=== PATIENT | male | born 1960 | race Caucasian/White ===

== ENCOUNTER 2016-07-04 16:14 | Observation (INO) | payer MEDICARE ==
[2016-07-04 16:19] VITALS: BP 175/85; PULSE 42; RESP 20; TEMP 97.6; O2SAT 100
[2016-07-04] MEDS ORDERED: TRAZ100T4 PO (16:59)
[2016-07-04] MEDS ORDERED: MULT1TAB84 PO (16:59)
[2016-07-04] MEDS ORDERED: ALPR0.5T3 PO (16:59)
[2016-07-04] MEDS ORDERED: FOLI1CAP7 PO (16:59)
[2016-07-04] MEDS ORDERED: FISH1000 (16:59)
[2016-07-04] MEDS ORDERED: BISO5TAB5 PO (16:59)
[2016-07-04] MEDS ORDERED: VITA100T15 PO (16:59)
[2016-07-04] MEDS ORDERED: ASCO500T PO (16:59)
[2016-07-04] MEDS ORDERED: BUPR150T3 PO (16:59)
[2016-07-04] MEDS ORDERED: HYDR25TA5 PO (16:59)
[2016-07-04] MEDS ORDERED: THIA100T PO (16:59)
[2016-07-04 17:00] VITALS: RESP 18; O2SAT 99
--- NOTE | 2016-07-04 17:01 | PD ---
HPI Chief Complaint: Cardiac Complaint Time Seen by Provider: 16:45 Travel History International Travel<30 days: No Contact w/Intl Traveler<30days: No Traveled to known affect area: No History of Present Illness HPI 56-year-old male complains of chest pain. Patient states that he started having dull aching pain left chest since yesterday. Patient states that the pain has been intermittent dull aching pain with radiation to left axilla. Patient denies any nausea or diaphoresis. Patient states that he started having irregular heartbeat today. Patient states that the chest pain is not so she with exertion. Patient states that he has intermittent dizziness and lightheadedness today. Patient has history of chest pain in the past. Patient had stress test, echocardiogram, patient took 2 aspirin last night. On a scale of 1-10 the pain is a 3 now. PFSH Past Medical History Atrial Fibrillation: Yes Depression: Yes Cardiac Catheterization: Yes Cardiovascular Problems: Yes High Cholesterol: Yes Chest Pain: Yes Hypertension: Yes Past Surgical History Other Surgery: Yes (bone,skin & muscle grafts - left leg) Social History Alcohol Use: No (quit 3 yrs ago) Tobacco Use: No (quit 3 yrs ago) Substance Use: Yes (marijuana - socially) Allergies-Medications Reported Meds & Prescriptions Reported Meds & Active Scripts Active Reported Vitamin B12 (Cyanocobalamin) 100 Mcg Tab 100 Mcg PO DAILY Trazodone (Trazodone HCl) 100 Mg Tab 100 Mg PO HS Thiamine (Thiamine HCl) 100 Mg Tab 100 Mg PO DAILY Multivitamin Adults (Multiple Vitamins W/ Minerals) 1 Tab 1 Tab PO DAILY Hydrochlorothiazide 25 Mg Tab 25 Mg PO DAILY Folic Acid 800 Mcg Cap 800 Mcg PO DAILY Fish Oil ([place]-3 Fatty Acids) 1,000 Mg Cap Bupropion HCl ER 24 HR (Bupropion HCl) 150 Mg Tab 150 Mg PO DAILY Bisoprolol (Bisoprolol Fumarate) 5 Mg Tab 5 Mg PO DAILY Ascorbic Acid 500 Mg Tab 500 Mg PO Alprazolam 0.5 Mg Tab 0.5 Mg PO Q8H PRN Review of Systems General / Constitutional: No: Fever Eyes: No: Visual changes HENT: No: Headaches Cardiovascular: Positive: Chest Pain or Discomfort, Irregular Rhythm Respiratory: No: Shortness of Breath Gastrointestinal: No: Abdominal Pain Genitourinary: No: Dysuria Musculoskeletal: No: Pain Skin: No Rash Neurologic: No: Weakness Psychiatric: No: Depression Endocrine: No: Polydipsia Hematologic/Lymphatic: No: Easy Bruising Physical Exam Narrative GENERAL: Well-nourished, well-developed patient. SKIN: Focused skin assessment warm/dry. HEAD: Normocephalic. EYES: No scleral icterus. No injection or drainage. NECK: Supple, trachea midline. No JVD or lymphadenopathy. CARDIOVASCULAR: Regular rate and rhythm without murmurs, gallops, or rubs. RESPIRATORY: Breath sounds equal bilaterally. No accessory muscle use. GASTROINTESTINAL: Abdomen soft, non-tender, nondistended. MUSCULOSKELETAL: No cyanosis, or edema. BACK: Nontender without obvious deformity. No CVA tenderness. Neurologic exam normal. Data Data Last Documented VS Vital Signs Date Time Temp Pulse Resp B/P Pulse Ox O2 Delivery O2 Flow Rate FiO2 07/04/16 17:00 18 99 Room Air 07/04/16 16:19 97.6 42 175/85 Orders Electrocardiogram (07/04/16 ) Complete Blood Count With Diff (07/04/16 16:39) Basic Metabolic Panel (Bmp) (07/04/16 16:39) Ckmb (Isoenzyme) Profile (07/04/16 16:39) Troponin I (07/04/16 16:39) Chest, Single Ap (07/04/16 16:39) Iv Access Insert/Monitor (07/04/16 16:39) Ecg Monitoring (07/04/16 16:39) Oxygen Administration (07/04/16 16:39) Oximetry (07/04/16 16:39) Comprehensive Metabolic Panel (07/04/16 16:45) Prothrombin Time / Inr (Pt) (07/04/16 16:45) Act Partial Throm Time (Ptt) (07/04/16 16:45) CKMB (07/04/16 16:32) CKMB% (07/04/16 16:32) Labs Laboratory Tests Test 07/04/16 16:32 White Blood Count 5.5 TH/MM3 Red Blood Count 4.16 MIL/MM3 Hemoglobin 12.7 GM/DL Hematocrit 36.5 % Mean Corpuscular Volume 87.7 FL Mean Corpuscular Hemoglobin 30.6 PG Mean Corpuscular Hemoglobin 34.9 % Concent Red Cell Distribution Width 13.7 % Platelet Count 233 TH/MM3 Mean Platelet Volume 7.6 FL Neutrophils (%) (Auto) 51.0 % Lymphocytes (%) (Auto) 34.8 % Monocytes (%) (Auto) 11.2 % Eosinophils (%) (Auto) 2.7 % Basophils (%) (Auto) 0.3 % Neutrophils # (Auto) 2.8 TH/MM3 Lymphocytes # (Auto) 1.9 TH/MM3 Monocytes # (Auto) 0.6 TH/MM3 Eosinophils # (Auto) 0.2 TH/MM3 Basophils # (Auto) 0.0 TH/MM3 CBC Comment DIFF FINAL Differential Comment Sodium Level 132 MEQ/L Potassium Level 4.2 MEQ/L Chloride Level 96 MEQ/L Carbon Dioxide Level 31.7 MEQ/L Anion Gap 4 MEQ/L Blood Urea Nitrogen 15 MG/DL Creatinine 0.86 MG/DL Estimat Glomerular Filtration 91 ML/MIN Rate Random Glucose 88 MG/DL Calcium Level 8.7 MG/DL Total Creatine Kinase 108 U/L Creatine Kinase MB 1.6 NG/ML Troponin I 0.02 NG/ML MDM Medical Decision Making Medical Screen Exam Complete: Yes Emergency Medical Condition: Yes Interpretation(s) 1700 p.m. EKG shows sinus rhythm nonspecific ST-T wave change. Frequent PVCs. 1813 p.m. CBC within normal limit. BMP within normal limit. Cardiac enzymes are normal. Last Impressions Chest X-Ray 07/04/16 1639 Signed Impressions: Service Date/Time: Monday, July 04, 2016 17:32 - CONCLUSION: Normal examination for a patient of this age. Cristobal Golden MD Differential Diagnosis Differential diagnosis including musculoskeletal, angina, UT, PE, pneumothorax. Narrative Course 56-year-old male with chest pain. Diagnosis Primary Impression: Chest pain Qualified Code: R07.9 - Chest pain, unspecified type Admitting Information Admitting Physician Requests: Observation Josh Maria MD Jul 04, 2016 17:01
[2016-07-04 17:19] LABS: AUTOMATED NEUTROPHIL # 2.8 TH/MM3 (1.8-7.7); BASOPHIL % 0.3 % (0.0-2.0); EOSINOPHIL # 0.2 TH/MM3 (0-0.4); EOSINOPHIL % 2.7 % (0.0-4.0); HEMATOCRIT 36.5 % (39.0-51.0); HEMO FLAGS DIFF FINAL; LYMPH % 34.8 % (9.0-44.0); LYMPHOCYTE # 1.9 TH/MM3 (1.0-4.8); MEAN CELL VOLUME 87.7 FL (80.0-100.0); MEAN CORPUSCULAR HEMOGLOBIN 30.6 PG (27.0-34.0); MEAN CORPUSCULAR HGB CONC 34.9 % (32.0-36.0); MONO % 11.2 % (0.0-8.0); PLATELET COUNT 233 TH/MM3 (150-450); RED BLOOD COUNT 4.16 MIL/MM3 (4.50-5.90); RED CELL DISTRIBUTION WIDTH 13.7 % (11.6-17.2); WHITE BLOOD COUNT 5.5 TH/MM3 (4.0-11.0)
--- NOTE | 2016-07-04 17:38 | RADRPT ---
EXAM DATE/TIME: 07/04/2016 17:32 [facility] COMPARISON: No previous studies available for comparison. INDICATIONS : Chest pain. MEDICAL HISTORY : Chronic obstructive pulmonary disease. SURGICAL HISTORY : None. ENCOUNTER: Initial ACUITY: 1 day PAIN SCORE: 5/10 LOCATION: Bilateral chest FINDINGS: A single view of the chest demonstrates the lungs to be symmetrically aerated without evidence of mas s, infiltrate or effusion. The cardiomediastinal contours are unremarkable. Osseous structures are intact. CONCLUSION: Normal examination for a patient of this age. Cristobal Golden MD on July 04, 2016 at 17:36 Board Certified Radiologist. This report was verified electronically.
[2016-07-04 17:42] LABS: ANION GAP 4 MEQ/L (5-15); BICARBONATE 31.7 MEQ/L (21.0-32.0); BLOOD UREA NITROGEN 15 MG/DL (7-18); CHLORIDE 96 MEQ/L (98-107); GLOMERULAR FILTRATION RATE 91 ML/MIN (>89); POTASSIUM 4.2 MEQ/L (3.5-5.1); SODIUM (NA) 132 MEQ/L (136-145)
[2016-07-04 17:45] LABS: CREATINE KINASE 108 U/L (39-308)
[2016-07-04 17:58] LABS: CKMB 1.6 NG/ML (0.5-3.6)
[2016-07-04] MEDS ORDERED: NITROGLYCERIN 0.4 MG SL 25 TABS/BTL SL PRN (18:30)
[2016-07-04 21:45] VITALS: BP 156/76; PULSE 59; RESP 20; TEMP 98.1; O2SAT 98
[2016-07-04 21:48] VITALS: PULSE 68
[2016-07-04 21:55] LABS: ANION GAP 8 MEQ/L (5-15); AST (GOT) 13 U/L (15-37); BICARBONATE 29.4 MEQ/L (21.0-32.0); BLOOD UREA NITROGEN 13 MG/DL (7-18); CHLORIDE 96 MEQ/L (98-107); GLOMERULAR FILTRATION RATE 98 ML/MIN (>89); POTASSIUM 3.8 MEQ/L (3.5-5.1); SODIUM (NA) 133 MEQ/L (136-145)
[2016-07-04 21:58] LABS: ALKALINE PHOSPHATASE 54 U/L (45-117); ALT (GPT) 19 U/L (12-78); TOTAL BILIRUBIN ADULT 0.4 MG/DL (0.2-1.0)
[2016-07-04 22:04] LABS: APTT (PATIENT) 29.2 SEC (24.3-30.1); PROTHROMBIN TIME - PATIENT 10.9 SEC (9.8-11.6)
[2016-07-04] MEDS ORDERED: traZODone HCL 100 MG TAB PO SCH (23:30)
[2016-07-04] MEDS ORDERED: ACETAMINOPHEN 500 MG CPLT PO PRN (23:30)
[2016-07-04] MEDS ORDERED: ACETAMINOPHEN/HYDROcodone 325 MG/5 MG TAB PO PRN (23:30)
[2016-07-04] MEDS: ALPRAZolam 0.5 MG TAB PO PRN (23:43)
[2016-07-04 23:57] VITALS: BP 157/77; PULSE 60; RESP 18; TEMP 97.7; O2SAT 95
[2016-07-05] VITALS (7 sets, daily range): BP systolic 134–139; BP diastolic 70–76; PULSE 53–70; RESP 18–20; TEMP 97.9; O2SAT 95–99
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
[2016-07-05] MEDS ORDERED: ASPIRIN 325 MG TAB PO SCH (09:00)
[2016-07-05] MEDS ORDERED: ONDANSETRON HCL 4 MG/2 ML VIAL IV PRN (09:15)
[2016-07-05] MEDS ORDERED: SODIUM CHLORIDE 0.9% FLUSH 10 ML FLUSH IV FLUSH PRN (09:15)
[2016-07-05] MEDS ORDERED: HYDROCHLOROTHIAZIDE 25 MG TAB PO SCH (09:30)
[2016-07-05] MEDS ORDERED: buPROPion HCL 150 MG SUSTAINED RELEASE TAB PO SCH (09:30)
[2016-07-05] MEDS ORDERED: FOLIC ACID 1 MG TAB PO SCH (09:30)
[2016-07-05] MEDS ORDERED: THIAMINE HCL 100 MG TAB PO SCH (09:30)
[2016-07-05] MEDS ORDERED: MULTIVITAMINS/MINERALS THERAPEUTIC TAB PO SCH (09:30)
[2016-07-05] MEDS ORDERED: CYANOCOBALAMIN 100 MCG TAB PO SCH (10:00)
[2016-07-05] MEDS: ALPRAZolam 0.5 MG TAB PO PRN (10:19)
[2016-07-05] MEDS ORDERED: BISOPROLOL 5 MG PO SCH (11:00)
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
--- NOTE | 2016-07-05 13:55 | EKG ---
Date Performed: 07/04/2016 Time Performed: 20:27:52 PTAGE: 56 years EKG: SINUS BRADYCARDIA WITH SINUS ARRHYTHMIA BORDERLINE ECG PREVIOUS TRACING : 07/04/2016 16.26 Compared to previous tracing ,PVCs no longer present. DOCTOR: Fredi Malone Interpretating Date/Time 07/05/2016 13:55:12
--- NOTE | 2016-07-05 13:56 | EKG ---
Date Performed: 07/04/2016 Time Performed: 16:26:33 PTAGE: 56 years EKG: Sinus rhythm WITH FREQUENT VENTRICULAR PREMATURE COMPLEXES ABNORMAL RHYTHM ECG NO PREVIOUS TRACING DOCTOR: Fredi Malone Interpretating Date/Time 07/05/2016 13:55:22
--- NOTE | 2016-07-05 14:09 | EKG ---
Date Performed: 07/04/2016 Time Performed: 22:40:32 PTAGE: 56 years EKG: Sinus rhythm WITH OCCASIONAL VENTRICULAR PREMATURE COMPLEXES BORDERLINE ECG PREVIOUS TRACING : 07/04/2016 20.27 Compared to previous tracing ,PVCs are new. DOCTOR: Fredi Malone Interpretating Date/Time 07/05/2016 14:08:53
[2016-07-05] MEDS ORDERED: SODIUM CHLORIDE 0.9% FLUSH 10 ML FLUSH IV FLUSH SCH (21:00)
== END 2016-07-05 15:20 | disposition home or self-care (01) ==
LOC: NEPC 16:14 → NEDA 18:20 → NEDH 18:35 → NEDA 18:39 → NEPFCDU 21:09
DX: R07.89 Other chest pain (principal); I48.91 Unspecified atrial fibrillation; E78.00 Pure hypercholesterolemia, unspecified; I10 Essential (primary) hypertension; G89.29 Other chronic pain; D64.9 Anemia, unspecified; K40.90 Unilateral inguinal hernia, without obstruction or gangrene, not specified as recurrent; F41.9 Anxiety disorder, unspecified; F32.9 Major depressive disorder, single episode, unspecified; Z87.891 Personal history of nicotine dependence
CPT/HCPCS: 71010; 80048; 80053; 82550; 82552; 84484; 85025; 85610; 85730; 93005; 99285; G0378

== ENCOUNTER → 2017-05-26 | Outpatient (CLI) | payer MEDICARE ==
[~2017-05-26] MED LIST: ALPR0.5T3 PO; AMLO5TAB2 PO; ASCO500T PO; BISO5TAB5 PO; BUPR150T3 PO; CYAN100 PO; FISH1000; FOLI1CAP7 PO; HYDR25TA5 PO; LISI-519 PO; MULT1TAB84 PO; MULTTAB67 PO; THIA100T PO; TRAZ100T4 PO; VITA100T54 PO
[2017-05-26 14:37] LABS: HEMATOCRIT 38.6 % (39.0-51.0); HEMOGLOBIN 13.8 GM/DL (13.0-17.0); MEAN CELL VOLUME 87.3 FL (80.0-100.0); MEAN CORPUSCULAR HEMOGLOBIN 31.1 PG (27.0-34.0); MEAN CORPUSCULAR HGB CONC 35.6 % (32.0-36.0); MEAN PLATELET VOLUME 6.7 FL (7.0-11.0); PLATELET COUNT 282 TH/MM3 (150-450); RED BLOOD COUNT 4.42 MIL/MM3 (4.50-5.90); RED CELL DISTRIBUTION WIDTH 13.4 % (11.6-17.2); WHITE BLOOD COUNT 5.7 TH/MM3 (4.0-11.0)
--- NOTE | 2017-05-26 16:30 | MH ---
cc: Ishaan Rosas MD DATE OF ADMISSION: 05/26/2017 He is 57. He has persistent hoarseness and a vocal cord lesion, for vocal cord biopsy. PAST MEDICAL AND SURGICAL HISTORY: Unremarkable. REVIEW OF SYSTEMS: Unremarkable. FAMILY HISTORY: Unremarkable. SOCIAL HISTORY: Unremarkable. PHYSICAL EXAMINATION: A well-appearing patient, no acute distress noted. HEENT: Reveals significant vocal cord lesion, mid left cord. LUNGS: Clear. HEART: Regular rate and rhythm. ABDOMEN: Soft and nontender. EXTREMITIES: Without cyanosis, clubbing, or edema. NEUROLOGIC: Alert, oriented. Nonfocal neurologic exam. IMPRESSION: The patient with chronic hoarseness and a vocal cord lesion, for direct laryngoscopy and biopsy. Instructed on method of surgery and possible complications including anesthetic complications, cardiac difficulty, pulmonary difficulty, stroke, or even . Surgical complications, bleeding, infection, risk of injury to voice with persistent hoarseness, airway obstruction, and possible tracheostomy. Patient appeared to agree, accept and understand the above mentioned risks and benefits. In addition, no guarantees or warranties regarding outcome were given. We will therefore proceed with surgery. Ishaan Rosas MD RUSTY/TI , 04:04 PM , 04:29 PM
== END ==
LOC: CPRE 13:53
PROVIDERS: ATTEND Specialist
DX: Z01.812 Encounter for preprocedural laboratory examination (principal); R49.0 Dysphonia
CPT/HCPCS: 36415; 85027

== ENCOUNTER → 2017-05-27 | Day surgery (SDC) | payer MEDICARE ==
[~2017-05-27] VITALS: Ht 177.8 cm; Wt 70.9 kg
[~2017-05-27] MED LIST changes: +ACETAMINOPHEN 1000 MG/100 ML 100 ML IV ONE; +ACETAMINOPHEN/HYDROcodone 325 MG/7.5 MG TAB PO PRN; -BUPR150T3 PO; +CHLORHEXIDINE GLUCONATE 2 % 1 PACK (2 CLOTHS) TOPICAL PRN; +DEXAMETHASONE SOD PHOS 4 MG/ML VIAL IV ONE; +DO NOT ADM ANY ANTICOAGULANT DRUGS PRN; -FISH1000; -HYDR25TA5 PO; +LACTATED RINGER'S 1000 ML IV PRN; +LIDOCAINE HCL 1% PF 5 ML SYRINGE OTHER ONE; +LORazepam 1 MG TAB PO ONE; +LORazepam 2 MG/ML VIAL ONE; +METOPROLOL TARTRATE 25 MG TAB PO PRN; +MIDAZOLAM HCL 2 MG/2 ML VIAL ONE; +MORPHINE SULFATE 2 MG/ML INJ IV PRN; -MULT1TAB84 PO; +ONDANSETRON HCL 4 MG/2 ML VIAL IV ONE; +POVIDONE IODINE 5% (ANTISEPSIS KIT) 4 APPLICATIONS EACH NARE PRN; +PROPOFOL 200 MG/20 ML AMP IV ONE; +SODIUM CHLORID 0.9% 500 ML IV PRN; +SUCCINYLCHOLINE CHLORIDE 100 MG/5 ML SYRINGE IV PUSH ONE; -THIA100T PO; -TRAZ100T4 PO
[2017-05-27 11:15] VITALS: BP 126/65; PULSE 60; RESP 16; TEMP 98.2; O2SAT 100
--- NOTE | 2017-05-28 10:54 | MP ---
cc: Ishaan Rosas MD DATE OF OPERATION: 05/27/2017 DATE OF OPERATION: 05/27/2017 PREOPERATIVE DIAGNOSIS: Chronic hoarseness with vocal cord lesion. PROCEDURE PERFORMED: Microlaryngoscopy biopsy. ANESTHESIA: General. ESTIMATED BLOOD LOSS: Minimal. COMPLICATIONS: None. OPERATING SURGEON: Ishaan Rosas MD DESCRIPTION OF OPERATION: Prepped and draped in usual fashion. Anterior commisure scope passed per orally. Microscope brought in. Small leukoplakic lesion noted on mid cord on left side. Remainder of larynx, piriform sinuses, postcricoid region, vallecula and oral cavity all within normal limits. Once the lesion was well identified, an upbiting microscopic forceps was used to remove the lesion and a small portion of mucosa surround the lesion. No active bleeding was noted. No other lesions were noted. The scope was removed. The patient tolerated the procedure well. MD RUSTY Perez/CAROL , 07:59 AM , 10:53 AM
== END | disposition home or self-care (01) ==
LOC: HSDC 07:11
PROVIDERS: ATTEND Specialist
DX: J38.3 Other diseases of vocal cords (principal); I10 Essential (primary) hypertension; Z87.891 Personal history of nicotine dependence
CPT/HCPCS: 00320; 31536; 88305; J0131; J0330; J1100; J2060; J2250; J2405; J3010